=== PATIENT | female | born 2000 | race Caucasian/White ===

== ENCOUNTER 2022-01-15 20:29 | Emergency (ER) | payer OTHER, SELFPAY ==
[2022-01-15 20:30] VITALS: BP 101/85; PULSE 109; RESP 16; TEMP 36.1; O2SAT 99; BMI 20.9
--- NOTE | 2022-01-15 21:15 | EDS_ITS ---
HPI History of Present Illness Chief Complaint: Palpitations Detail of Chief Complaint: Palpitations that started at 1500 Informant: patient Onset/Context/Timing Onset: - (Greater than 1 year) Context: Sudden Onset Timing: Continuous (Normally she states it resolves after short time period. Today it has not) Quality: Palpitations Location: Chest Current Severity: Mild Maximum Severity: Moderate Worsened by: Nothing Relieved by: Nothing Associated Symptoms Associated Symptoms: Slight shortness of breath Narrative Narrative: Patient is a 21-year-old female with history of IBS, anxiety and depression who presents because of persistent palpitations. She denies drug use. She denies history of cardiac disease. She denies history of mitral valve prolapse. She states she has not been eating well since November. She is uncertain whether she is lost or gained any weight. When asked if her clothes were looser on her she replied no . Patient denies history of VTE. She denies leg pain, swelling discoloration. She has no other symptoms. Prior similar symptoms: Yes Recent Illness/Hospitalization: No PFSH PFSH Medical History no medical history no medical history (Anxiety and depression and irritable bowel syndrome) Home Medications NK 01/15/22 [History Last Taken Unknown] Allergy/AdvReac Type Severity Reaction Status Date / Time No Known Allergies Allergy Verified 01/15/22 20:33 Surgical History no surgical history no surgical history Social History (Updated 01/15/22 @ 21:[address] Torres Lazaro MD) household members: other details: [employer] student Smoking Status: Never smoker alcohol intake: never substance use type: does not use ROS ROS ED Constitutional Constitutional ED: Denies chills, fever(s), subjective, sweats or weight loss Eyes Eyes: Denies blurry vision, change in vision or diplopia ENT ENT ED: Denies ear pain, rhinorrhea or sore throat Cardiovascular Cardiovascular: Reports palpitations; Denies chest pain, orthopnea, paroxysmal nocturnal dyspnea or racing heartbeat Respiratory/Chest Respiratory/Chest: Reports dyspnea; Denies cough, dyspnea on exertion, orthopnea or paroxysmal nocturnal dyspnea Gastrointestinal Gastrointestinal: Reports other Details: Patient has green stool because she takes iron supplements. She denies history of GI bleed or iron deficiency anemia. She denies abnormal vaginal bleeding. ; Denies abdominal pain, constipation, diarrhea, melena, nausea or vomiting Genitourinary Genitourinary ED: Denies dysuria, hematuria or urinary frequency Musculoskeletal Musculoskeletal: Denies arthralgias, back pain, myalgias or neck pain Integumentary Denies Abrasions or rash Neurologic Neurologic: Denies paresthesias or weakness Psychiatric Psychiatric: Reports anxiety Hematologic/Lymphatic Hematologic/Lymphatic: Denies easy bleeding, easy bruising or lymphadenopathy EXAM Physical Exam Const Vital Signs: 01/15/22 20:30 01/15/22 21:17 Temperature 97.0 F L Temperature Source Temporal Pulse Rate 109 H Respiratory Rate 16 Respiratory Pattern Normal Blood Pressure 101/85 H Blood Pressure Mean 90 Pulse Ox 99 Oxygen Delivery Method Room Air Positive well nourished and well developed General Appearance ED: well developed and NAD; Negative for pallor HEENT Reports moist mucous membranes HEENT Narrative: Head is atraumatic normocephalic. Ears normal. Nares patent. Mucosa moist. Uvula midline. Eyes PERRL and EOMs intact bilaterally General Eye ED: Negative for pale conjunctiva or scleral icterus Neck no lymphadenopathy, supple and no JVD Chest Wall inspection of chest normal and palpation of chest normal Resp normal respiratory effort and clear to auscultation bilaterally Cardio regular rate, regular rhythm, S1 normal heart sound, S2 normal heart sound and no murmurs GI normal to inspection, nondistended, normoactive bowel sounds, non-distended and no masses; Negative for non-tender or hepatosplenomegaly Palpation: tender other (Diffuse tenderness, which patient attributes to her IBS) Back/Spine no CVA tenderness Extremity normal to inspection General Extremety ED: Negative for edema or tenderness General Extremity: Negative for edema Neuro oriented x3, CN's II-XII intact bilaterally and no sensory deficits noted Sensorium / Orientation: alert Psych Psych Narrative: Mood and affect are flat. Skin no rashes or lesions noted, no wounds and skin turgor normal General Skin Exam: Negative for jaundice or pallor MDM MDM MDM Narrative Medical decision making narrative: SeeWith history of palpitation lasting hours will place on monitor to determine if there is any or PVCs. Because of her poor p.o. intake will obtain electrolyte panel to assess electrolytes and specifically potassium. Patient's had no ectopy during her entire ER stay. She has not been tachycardic either. Suspect this is related to her anxiety disorder. Lab Data Attestation: I reviewed the patient's lab results. Lab results narrative: Laboratory values are unremarkable. Labs: Laboratory Results - last 24 hr 01/15/22 21:11 Sodium 142 Potassium 3.5 Chloride 111 H Carbon Dioxide 26.0 Anion Gap 5 BUN 11 Creatinine 0.91 Estim Creat Clear Calc 90.27 Est GFR (MDRD) Af Amer 99 Est GFR (MDRD) Non-Af 82 BUN/Creatinine Ratio 12.1 Glucose 91 Calcium 8.8 Rhythm Strip Rhythm Strip: Sinus Rhythm Rate: 76 Ectopy: None Discharge Plan Triage Chief Complaint: Palpitations ED Provider: Torres Lazaro Dx/Rx/DC Orders Clinical Impression: Palpitations, History of IBS, Hx of anxiety disorder Instructions: ED Palpitations Prescriptions: No Action NK Primary Care Provider: RUDY HERNANDEZ Referrals: RUDY HERNANDEZ [Other] Center,[facility] [[facility]] - 3-5 Days if not improving Disposition Disposition: Home, Self Care
[2022-01-15 22:07] LABS: Anion Gap 5 (5-15); BUN 11 mg/dL (7-18); BUN/Creat Ratio 12.1 RATIO (10-20); Calcium,Total 8.8 mg/dL (8.5-10.1); Chloride 111 mmol/L (98-107); Creatinine, Serum 0.91 mg/dL (0.55-1.02); EST Glomerular Filtration Rate 82 mL/min (>60); Est Glom Filt Rate - Afr Amer 99 mL/min (>60); Estimated Creatinine Clearance 90.27 ml/min; Glucose 91 mg/dL (74-106); Potassium 3.5 mmol/L (3.5-5.1); Sodium Level 142 mmol/L (136-145)
[2022-01-15 22:33] VITALS: PULSE 84; RESP 14; O2SAT 98
== END 2022-01-15 22:34 | disposition home or self-care (01) ==
PROVIDERS: Emergency Provider Emergency Medicine; Visit Provider Emergency Medicine
DX: R00.2 Palpitations (principal)
CPT/HCPCS: 80048; 99283